=== PATIENT | male | born 1970 | race Two or more races ===

== ENCOUNTER 2020-05-14 04:13 | Inpatient (IN) ==
[2020-05-14] MEDS ORDERED: SODIUM CHLORIDE 0.9% 1,000 ML IV STA (04:45)
[2020-05-14] MEDS ORDERED: MORPHINE 4 MG/1 ML VIAL IV STA (04:45)
[2020-05-14] MEDS ORDERED: ONDANSETRON 4 MG/2 ML VIAL IV STA (04:45)
[2020-05-14 05:08] LABS: Basophils % 1.1 % (0.0-0.8); Eosinophils # 0.1 10*3/uL (0.0-0.87); Eosinophils % 2.2 % (0.00-10.9); Hemoglobin 16.1 GM/DL (14.0-18.0); Immature Granulocytes % 0.4 %; Immature Granulocytes Absolute 0.01 #; Lymphocytes # 0.7 10*3/uL (1.4-4.0); Lymphocytes % 24.8 % (21.2-54.2); Mean Corpuscular HGB Conc 33.5 GM/DL (32-36); Mean Corpuscular Volume 83.6 FL (87-102); Mean Platelet Volume 10.3 FL (9.6-12.0); Monocytes % 24.8 % (1.7-12.7); Neutrophils % 46.7 % (38.7-73.9); Platelet Count 254 T/CUMM (130-400); Red Blood Count 5.74 MC/CUMM (3.8-5.5); White Blood Count 2.7 T/CUMM (4-12)
[2020-05-14 05:33] LABS: Albumin 3.4 G/DL (3.4-5.0); Bilirubin,Total 0.5 MG/DL (0.2-1.0); Calcium 8.5 MG/DL (8.5-10.1); Osmolality,Calculated 277.8 MOS/KG (273-304); Total Protein 7.1 G/DL (6.4-8.3)
[2020-05-14] MEDS ORDERED: ONDANSETRON 4 MG/2 ML VIAL IV PRN (07:52)
[2020-05-14] MEDS ORDERED: DEXTROSE 50% 25 GM/50 ML SYRINGE IV PRN (07:52)
[2020-05-14] MEDS ORDERED: GLUCAGON 1 MG VIAL IM PRN (07:52)
[2020-05-14] MEDS ORDERED: ENOXAPARIN 40 MG/0.4 ML SYRINGE SUBCUT SCH (08:00)
[2020-05-14 08:06] LABS: Band Neutrophils 5 % (0-10); Eosinophils 3 % (0-10); Lymphocytes 30 % (20-55); Platelet Estimate Adequate; Segmented Neutrophils 42 % (50-85); Total Cells Counted 100
[2020-05-14] MEDS: SODIUM CHLORIDE 0.9% 1,000 ML IV SCH ×2 (09:30→18:45)
[2020-05-14 09:56] LABS: Bilirubin,Urine Negative (Negative); Blood, Urine Negative (Negative); Glucose,Urine (UA) Negative (Negative); Ketones,Urine Negative (Negative); Mucus,Urine Occasional /LPF (Occasional); Nitrite,Urine Negative (Negative); Protein,Urine Negative; RBC,Urine 5 /HPF (0-4); Urine Appearance CLEAR (Clear); Urine Color Yellow (Yellow); Urine Specific Gravity > 1.060 (1.001-1.035); Urine Urobilinogen < 2.0 EU/DL (0.2-1.0)
[2020-05-14 13:49] LABS: Hematocrit 45.2 VOL% (42.0-52.0); Hemoglobin 14.5 GM/DL (14.0-18.0)
[2020-05-14] MEDS: PANTOPRAZOLE 40 MG TABLET PO SCH ×2 (15:27→20:42)
[2020-05-14] MEDS: MORPHINE 4 MG/1 ML VIAL IV PRN ×2 (15:27→20:41)
[2020-05-14 19:04] LABS: Hematocrit 40.8 VOL% (42.0-52.0); Hemoglobin 13.5 GM/DL (14.0-18.0)
[2020-05-15 01:37] LABS: Hematocrit 39.3 VOL% (42.0-52.0); Hemoglobin 12.8 GM/DL (14.0-18.0)
[2020-05-15] MEDS: SODIUM CHLORIDE 0.9% 1,000 ML IV SCH ×3 (02:34→18:13)
[2020-05-15 05:38] LABS: Basophils % 0.9 % (0.0-0.8); Eosinophils # 0.1 10*3/uL (0.0-0.87); Eosinophils % 2.5 % (0.00-10.9); Hematocrit 40.3 VOL% (42.0-52.0); Hemoglobin 13.1 GM/DL (14.0-18.0); Immature Granulocytes % 0.3 %; Immature Granulocytes Absolute 0.01 #; Lymphocytes # 1.1 10*3/uL (1.4-4.0); Lymphocytes % 35.3 % (21.2-54.2); Mean Corpuscular HGB Conc 32.5 GM/DL (32-36); Mean Corpuscular Volume 85.7 FL (87-102); Mean Platelet Volume 10.5 FL (9.6-12.0); Monocytes % 32.8 % (1.7-12.7); Neutrophils % 28.2 % (38.7-73.9); Platelet Count 214 T/CUMM (130-400); White Blood Count 3.2 T/CUMM (4-12)
[2020-05-15 05:55] LABS: Calcium 7.7 MG/DL (8.5-10.1); Osmolality,Calculated 273.7 MOS/KG (273-304)
[2020-05-15 06:18] LABS: Atypical Lymphocytes Few; Band Neutrophils 7 % (0-10); Eosinophils 3 % (0-10); Hypochromasia 1+; Lymphocytes 32 % (20-55); Segmented Neutrophils 28 % (50-85); Total Cells Counted 100
[2020-05-15 06:19] LABS: Microcytosis Slight; Platelet Estimate Normal
[2020-05-15 07:11] LABS: Hematocrit 40.9 VOL% (42.0-52.0); Hemoglobin 13.2 GM/DL (14.0-18.0)
[2020-05-15] MEDS ORDERED: POTASSIUM CHLORIDE RIDER 10 MEQ in PREMIX 1 EACH IV PRN (07:53)
[2020-05-15] MEDS: MORPHINE 4 MG/1 ML VIAL IV PRN ×3 (08:58→21:52)
[2020-05-15] MEDS: PANTOPRAZOLE 40 MG TABLET PO SCH ×2 (08:58→21:46)
[2020-05-15] MEDS: CHOLESTYRAMINE 4 GM PACK PO SCH ×2 (11:29→21:46)
[2020-05-15] MEDS: metroNIDAZOLE INJ 500 MG in PREMIX 1 EACH IV SCH ×2 (11:29→17:03)
[2020-05-15] MEDS: VANCOMYCIN 50 MG/ML 60 ML/BOTTLE PO SCH ×2 (12:56→17:21)
[2020-05-16] MEDS: SODIUM CHLORIDE 0.9% 1,000 ML IV SCH ×3 (00:52→23:23)
[2020-05-16] MEDS: VANCOMYCIN 50 MG/ML 60 ML/BOTTLE PO SCH ×4 (00:53→17:57)
[2020-05-16] MEDS: metroNIDAZOLE INJ 500 MG in PREMIX 1 EACH IV SCH ×3 (00:55→23:13)
[2020-05-16] MEDS: CHOLESTYRAMINE 4 GM PACK PO SCH ×2 (09:41→23:16)
[2020-05-16] MEDS: MORPHINE 4 MG/1 ML VIAL IV PRN (09:44)
[2020-05-16] MEDS: POTASSIUM CHLORIDE 20 MEQ TABLET PO PRN ×2 (09:44→14:53)
[2020-05-16] MEDS: PANTOPRAZOLE 40 MG TABLET PO SCH ×2 (09:44→23:12)
[2020-05-16] MEDS ORDERED: ZALEPLON 5 MG CAPSULE PO PRN (21:20)
[2020-05-16] MEDS ORDERED: ATORVASTATIN 20 MG TABLET PO SCH (21:30)
[2020-05-17] MEDS: SODIUM CHLORIDE 0.9% 1,000 ML IV SCH (00:39)
[2020-05-17] MEDS: VANCOMYCIN 50 MG/ML 60 ML/BOTTLE PO SCH ×3 (00:39→12:32)
[2020-05-17 06:21] LABS: Basophils # 0.1 10*3/uL (0.0-0.2); Basophils % 0.8 % (0.0-0.8); Eosinophils # 0.4 10*3/uL (0.0-0.87); Eosinophils % 5.5 % (0.00-10.9); Hematocrit 40.4 VOL% (42.0-52.0); Hemoglobin 13.5 GM/DL (14.0-18.0); Immature Granulocytes % 0.8 %; Immature Granulocytes Absolute 0.05 #; Lymphocytes # 1.6 10*3/uL (1.4-4.0); Mean Corpuscular HGB Conc 33.4 GM/DL (32-36); Mean Corpuscular Volume 83.3 FL (87-102); Monocytes % 13.3 % (1.7-12.7); Neutrophils % 55.6 % (38.7-73.9); Platelet Count 285 T/CUMM (130-400); Red Blood Count 4.85 MC/CUMM (3.8-5.5); Red Cell Distribution Width 14.2 % (9.3-17.3); White Blood Count 6.5 T/CUMM (4-12)
[2020-05-17 06:45] LABS: Calcium 8.5 MG/DL (8.5-10.1); Osmolality,Calculated 273.5 MOS/KG (273-304)
[2020-05-17 06:53] LABS: Band Neutrophils 1 % (0-10); Eosinophils 7 % (0-10); Lymphocytes 12 % (20-55); Platelet Estimate Adequate; Segmented Neutrophils 69 % (50-85); Total Cells Counted 100
[2020-05-17 06:54] LABS: Hypochromasia 1+; Microcytosis Slight
[2020-05-17] MEDS: metroNIDAZOLE INJ 500 MG in PREMIX 1 EACH IV SCH (07:32)
[2020-05-17] MEDS: PANTOPRAZOLE 40 MG TABLET PO SCH (08:51)
[2020-05-17] MEDS: POTASSIUM CHLORIDE 20 MEQ TABLET PO PRN (08:51)
[2020-05-17] MEDS: CHOLESTYRAMINE 4 GM PACK PO SCH (09:42)
[2020-05-17 12:47] VITALS: BP 120/75
== END 2020-05-17 14:16 | disposition home or self-care (01) | DRG 372 ==
LOC: N.ED 04:13 → N.EDINP 04:13 → N.TELES 13:17
PROVIDERS: ADMIT Hospitalist; ATTEND Hospitalist